=== PATIENT | female | born 1995 | race Caucasian/White ===

== ENCOUNTER 2022-11-19 06:00 | Inpatient (IN) | payer OTHER ==
[2022-11-19] MEDS ORDERED: ELECTROLYTE-148 SOLN 1,000 ML IV SCH ×2 (07:00→19:30)
[2022-11-19] MEDS ORDERED: AMPICILLIN - 2 GM in SODIUM CHLORIDE 100 ML IVPB ONE (07:23)
[2022-11-19] MEDS ORDERED: AMPICILLIN SODIUM 2 GM VIAL ONE (07:55)
[2022-11-19] MEDS ORDERED: FENTANYL/BUPIVACAINE/NS/PF - PCEA - 50 ML DISP.SYRIN EP ONE ×3 (08:14→16:24)
[2022-11-19 08:27] LABS: INR 1.11 (0.83-1.09); PROTHROMBIN TIME (PATIENT) 12.9 SEC (9.7-13.0)
[2022-11-19 08:30] LABS: ACTIVATED PTT 26.8 SECONDS (25.2-36.5)
[2022-11-19] MEDS ORDERED: NALOXONE HCL 0.4 MG/ML VIAL IVPUSH PRN (08:34)
[2022-11-19] MEDS ORDERED: BUPIVACAINE HCL/PF 0.25% (2.5MG/ML) 10 ML VIAL ONE ×2 (08:36→15:51)
[2022-11-19] MEDS ORDERED: FENTANYL CITRATE/PF 50 MCG/ML VIAL ONE ×3 (08:36→19:40)
[2022-11-19] MEDS: FENTANYL/BUPIVACAINE/NS/PF - PCEA - 50 ML DISP.SYRIN EP SCH ×2 (09:05→13:50)
[2022-11-19 10:02] VITALS: BMI 35.9
[2022-11-19] MEDS ORDERED: AMPICILLIN SODIUM 1 GM VIAL ONE ×2 (11:30→15:34)
[2022-11-19] MEDS: AMPICILLIN - 1 GM in SODIUM CHLORIDE 100 ML IVPB SCH ×2 (11:35→15:40)
[2022-11-19] MEDS ORDERED: ONDANSETRON 4 MG/2 ML VIAL IVPUSH ONE (18:31)
[2022-11-19] MEDS ORDERED: ONDANSETRON 4 MG/2 ML VIAL ONE ×2 (18:33→20:19)
[2022-11-19] MEDS ORDERED: CITRIC ACID/SODIUM CITRATE 30 ML UNIT-DOSE CUP PO ONE (19:00)
[2022-11-19] MEDS ORDERED: ELECTROLYTE-148 SOLN 500 ML IV ONE (19:00)
[2022-11-19] MEDS ORDERED: LIDO 2%/EPI 1:200000 PRESRVFRE (20 ML SDVIAL) ONE (19:39)
[2022-11-19] MEDS ORDERED: ceFAZolin SODIUM 1 GM VIAL ONE (19:52)
[2022-11-19] MEDS ORDERED: KETAMINE HCL 500 MG/10 ML VIAL ONE (19:59)
[2022-11-19] MEDS ORDERED: OXYTOCIN 10 UNITS/ML VIAL ONE (20:07)
[2022-11-19] MEDS ORDERED: METHYLERGONOVINE MALEATE 0.2 MG/1 ML AMP IM PRN (20:34)
[2022-11-19] MEDS ORDERED: OXYTOCIN 20 UNITS in 0.9% NS 20 UNIT/1,000 ML INFUS.BAG IV ONE (21:09)
[2022-11-19] MEDS ORDERED: IBUPROFEN 800 MG/8 ML IJ IVPB ONE (21:09)
[2022-11-19] MEDS: IBUPROFEN 800 MG/8 ML IJ IVPB PRN (21:19)
[2022-11-19] MEDS: OXYTOCIN 20 UNITS in 0.9% NS 20 UNIT/1,000 ML INFUS.BAG IV SCH (21:19)
[2022-11-19] MEDS: FERROUS SO4 325 MG TABLET (FP) PO SCH (23:31)
[2022-11-20] MEDS ORDERED: MISOPROSTOL 200 MCG TABLET PO ONE (01:00)
[2022-11-20] MEDS ORDERED: AMPICILLIN NA/SULBACTAM NA 1.5 GM in SODIUM CHLORIDE 100 ML IVPB ONE (01:41)
[2022-11-20] MEDS: ACETAMINOPHEN 325 MG TABLET (FP) PO PRN ×2 (02:45→14:48)
[2022-11-20 02:52] LABS: BASO % 0.4 % (0-2.0); EOS % 0.1 % (0-4.5); HEMATOCRIT 30.8 % (32.4-45.2); LYMPH % 14.8 % (8-40); MCH 27.6 pg (25.7-33.7); MCHC 35.7 g/dl (32.0-36.0); MEAN CELL VOLUME 77.3 fl (80-96); MEAN PLT VOLUME 8.4 fl (7.5-11.1); MONO % 9.6 % (3.8-10.2); NEUT % 75.1 % (42.8-82.8); PLATELET COUNT 220 10^3/uL (134-434); RBC 3.99 M/mm3 (3.60-5.2); RDW 14.1 % (11.6-15.6); WHITE BLOOD COUNT 12.9 K/mm3 (4.0-10.0)
[2022-11-20] MEDS: AMPICILLIN - 1 GM in SODIUM CHLORIDE 100 ML IVPB SCH (02:59)
[2022-11-20] MEDS: OXYTOCIN 20 UNITS in 0.9% NS 20 UNIT/1,000 ML INFUS.BAG IV SCH (04:30)
[2022-11-20 08:50] LABS: BASO % 0.5 % (0-2.0); EOS % 0.2 % (0-4.5); HEMATOCRIT 28.2 % (32.4-45.2); HEMOGLOBIN 10.3 GM/dL (10.7-15.3); LYMPH % 18.3 % (8-40); MCH 28.2 pg (25.7-33.7); MCHC 36.4 g/dl (32.0-36.0); MEAN CELL VOLUME 77.6 fl (80-96); MEAN PLT VOLUME 8.6 fl (7.5-11.1); PLATELET COUNT 194 10^3/uL (134-434); RBC 3.64 M/mm3 (3.60-5.2); RDW 13.9 % (11.6-15.6); WHITE BLOOD COUNT 12.3 K/mm3 (4.0-10.0)
[2022-11-20] MEDS: IBUPROFEN 800 MG/8 ML IJ IVPB PRN (09:33)
[2022-11-20] MEDS: FERROUS SO4 325 MG TABLET (FP) PO SCH ×2 (09:34→21:17)
[2022-11-20] MEDS: PRENATAL VITAMINS W/ FOLIC ACID TABLET (FP) PO SCH (09:34)
[2022-11-20] MEDS: oxyCODONE HCL 5 MG TABLET PO PRN (18:19)
[2022-11-20] MEDS: SIMETHICONE 80 MG TAB.CHEW (FP) PO PRN (18:19)
[2022-11-20] MEDS ORDERED: BISACODYL 10 MG SUPP.RECT RC PRN (20:34)
[2022-11-20] MEDS: IBUPROFEN 600 MG TABLET (FP) PO PRN (21:33)
[2022-11-21] MEDS: SIMETHICONE 80 MG TAB.CHEW (FP) PO PRN ×3 (06:13→20:05)
[2022-11-21] MEDS: oxyCODONE HCL 5 MG TABLET PO PRN ×2 (06:13→20:04)
[2022-11-21] MEDS: PRENATAL VITAMINS W/ FOLIC ACID TABLET (FP) PO SCH (09:08)
[2022-11-21] MEDS: FERROUS SO4 325 MG TABLET (FP) PO SCH ×2 (09:08→23:01)
[2022-11-21] MEDS: IBUPROFEN 600 MG TABLET (FP) PO PRN ×3 (09:09→23:01)
[2022-11-21 09:29] VITALS: RESP 18
[2022-11-21] MEDS: ACETAMINOPHEN 325 MG TABLET (FP) PO PRN (10:19)
[2022-11-21] MEDS: FENTANYL/BUPIVACAINE/NS/PF - PCEA - 50 ML DISP.SYRIN EP SCH (19:13)
[2022-11-22] MEDS: SIMETHICONE 80 MG TAB.CHEW (FP) PO PRN ×2 (05:44→09:27)
[2022-11-22] MEDS: oxyCODONE HCL 5 MG TABLET PO PRN (05:44)
[2022-11-22 07:12] LABS: BASO % 0.6 % (0-2.0); EOS % 3.3 % (0-4.5); HEMATOCRIT 25.2 % (32.4-45.2); HEMOGLOBIN 8.7 GM/dL (10.7-15.3); LYMPH % 26.3 % (8-40); MCH 27.2 pg (25.7-33.7); MCHC 34.5 g/dl (32.0-36.0); MEAN PLT VOLUME 8.7 fl (7.5-11.1); MONO % 7.4 % (3.8-10.2); NEUT % 62.4 % (42.8-82.8); PLATELET COUNT 207 10^3/uL (134-434); RBC 3.19 M/mm3 (3.60-5.2); RDW 13.7 % (11.6-15.6); WHITE BLOOD COUNT 9.5 K/mm3 (4.0-10.0)
[2022-11-22] MEDS: IBUPROFEN 600 MG TABLET (FP) PO PRN (09:27)
[2022-11-22] MEDS: PRENATAL VITAMINS W/ FOLIC ACID TABLET (FP) PO SCH (09:27)
[2022-11-22] MEDS: FERROUS SO4 325 MG TABLET (FP) PO SCH (09:27)
[2022-11-22 10:10] VITALS: BP 111/80; PULSE 90; TEMP 98.8
== END 2022-11-22 13:30 | disposition home or self-care (01) | DRG 540 ==
LOC: JDEL 06:00 → JLDR 07:06 → J3W 22:07
PROVIDERS: ADMIT Student in an Organized Health Care Education/Training Program; ATTEND Student in an Organized Health Care Education/Training Program
PROC: 10D00Z1 Extraction of Products of Conception, Low, Open Approach (ICD-10-PCS; principal; 2022-11-19)
DX: O62.0 Primary inadequate contractions (principal); O99.824 Streptococcus B carrier state complicating childbirth; O72.1 Other immediate postpartum hemorrhage; O99.214 Obesity complicating childbirth; E66.9 Obesity, unspecified; Z3A.40 40 weeks gestation of pregnancy; Z37.0 Single live birth
CPT/HCPCS: 36415; 59025; 80053; 82570; 83986-QW; 84156; 85025; 85610; 85730; 86780; 86850; 86900; 86901; 87635; 88304-TC; 88307-TC